=== PATIENT | female | born 1990 | race Caucasian/White ===

== ENCOUNTER 2017-12-01 20:29 | Emergency (ER) | payer BC, OTHER ==
[2017-12-01] MEDS ORDERED: Lactated Ringers 1,000 ML IV ONE (21:18)
[2017-12-01] MEDS ORDERED: HYDROmorphone 2 MG/ML SDV IVPUSH ONE ×2 (21:19→23:46)
[2017-12-01] MEDS ORDERED: Ondansetron 4 MG/2 ML SDV IVPUSH ONE ×2 (21:19→23:46)
[2017-12-01] MEDS ORDERED: Sodium Chloride 0.9% 1,000 ML IV STA (22:52)
[2017-12-01] MEDS ORDERED: Iopamidol 755 Mg/ML 100 ML Bottle IV ONE (23:17)
[2017-12-02] MEDS ORDERED: Sodium Chloride 0.9% 1,000 ML IV SCH
[2017-12-02] MEDS ORDERED: Tamsulosin 0.4 MG Cap.ER PO ONE (00:08)
[2017-12-02] MEDS ORDERED: HYDROmorphone 2 MG/ML SDV IVPUSH ONE (01:33)
[2017-12-02] MEDS ORDERED: Ondansetron 4 MG/2 ML SDV IVPUSH ONE (03:20)
[2017-12-02] MEDS ORDERED: Acetaminophen/oxyCODONE 325-5 MG Tab PO ONE (03:21)
[2017-12-02] MEDS ORDERED: Ketorolac 30 MG/ML SDV IVPUSH ONE (04:49)
[2017-12-02 05:18] VITALS: BP 134/81
--- NOTE | 2017-12-04 11:27 | ER ---
DATE SEEN: 12/01/2017 TIME SEEN: The patient was seen at 2045 hours on 12/01/2017. SUBJECTIVE: Makayla is a 26-year-old, , 2, para 2 woman, who is known to have diarrhea on 11/30/2017, onset at 2200 hours. Then, she slept all night and experienced anorexia the entire day today, 12/01, and then slept till 1600 hours. She went golfing for an hour and then she experienced vomiting. Her last menstrual period was on November 12. Now, she has right flank discomfort and feels "terrible." She has a sharp pain, 9/10 on intensity. Mother had ovarian cyst. The patient is not aware of having any ovarian cyst. The patient is not on control pills. She is sexually active. Had laparoscopic cholecystectomy in 2010. Otherwise, she has been relatively healthy. The patient denies fever. Regarding her eating habits, she had no breakfast today. Yesterday, on 11/30/2017, she had a hot dog and for supper then had a hamburger. Today, she has not eaten anything. She had poor sleep throughout the evening of 11/30/2017 and progress clerk of 12/01/2017, finally went to sleep and slept till 1600 hours today. She had 5 episodes of diarrhea in the progress clerk of 12/01/2017. Presently, she has mild suprapubic discomfort. ALLERGIES: None. MEDICATIONS: None. The patient is attended by her . REVIEW OF SYSTEMS: Otherwise, negative. See HPI. PHYSICAL EXAMINATION: VITAL SIGNS: Blood pressure 131/75, heart rate 62, respirations 20, oxygen saturation 100%, and temperature 36.7 degrees centigrade. Repeat vital signs at 0257 hours, 36.6 degrees centigrade, 64 heart rate, blood pressure 126/80, respirations 17, and oxygen saturation 97%. GENERAL: The patient is in marked pain. She is lying on her side. She has right lower abdominal discomfort, but mostly suprapubic discomfort. Feels nauseated. She is not vomiting now. HEENT: PERRLA intact. Pharynx without abnormality. No thyromegaly. No cervical adenopathy. No tracheal tug. LUNGS: Clear without rales, rhonchi, or wheezes. HEART: S1, S2. No irregular rate or rhythm. ABDOMEN: Soft. No guarding, no rebound. Idbzijuz-kc-nvco suprapubic discomfort. Jtsh-ez-lpmualvl CVA percussion discomfort in the right and left costophrenic angle. EXTREMITIES: Lower extremities without edema. NEURO: Deep tendon reflexes normal in the upper and lower extremities. Cranial nerves II through XII intact, oriented x3, and gait appropriate. No pronator drift, and muscle strength in the upper and lower extremities are normal. WORKING DIAGNOSIS: Rule out renal stone, rule out appendicitis, rule out diverticulitis, rule out ovarian cyst. LABORATORY FINDINGS: White count 19,600, PMNs 85, lymphs 12, monos is negative, eosinophils 3; platelet count 242; hemoglobin 13.6. Complete metabolic panel is normal except for glucose 126 and total protein 8.2, creatinine is 1.0, BUN 13, BUN-creatinine ratio is 13, and GFR greater than 60, sodium 139, potassium 4.3, chloride 104, bicarb 24. Urine: Large occult blood, 15 ketones, urobilinogen 1, leukocyte esterase negative, moderate squamous epithelial cells, few bacteria, moderate mucus. Urine is negative. 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 Obstructing 4 x 4 x 3 mm stone in the distal right ureter, approximately 5 cm above the ureterovesical junction. Moderate dilation of the proximal right ureter, and moderate hydronephrosis in the right renal moiety. Right perinephric and periureteral fat stranding. No bladder mass or definitive wall thickening. Small amount of free fluid in the lower pelvis. Status post cholecystectomy. No pathologically enlarged nodes, reproductive organs. ASSESSMENT: 1. Kidney stones. Right ureter dilation with right hydronephrosis and right ureter stone, 4 x 4 x 3 mm, 6 cm above the ureteropelvic junction. 2. Cholecystectomy. 3. Mild obesity. 4. Not . Negative test. 5. Lactic acid 0.4. 6. Mild hyperglycemia, could reflect to pre-stage diabetes. 7. Trace eosinophilia 3% and also neutrophilic leukocytosis, 19,600 white count. The patient is status post fall in the ER. She did not have a fever. Initial plans were to admit the patient, but there were no beds in the hospital. Consequently, the patient stayed till 1700 hours in the ED and received 2 L of normal saline, Flomax 0.4 mg, total 4 mg of Dilaudid, 30 mg of Toradol, and Zofran 8 mg IV. No antibiotics were given. Per the previous recommendation of [facility] urologists, patients were to stay if they have one kidney, kidney stones, vomiting, fever, and no pain relief. The patient seems to have passed several fragments of stone with 3 small particles of stones. It is possible the may have come from the left ureter; however, and may not have moved her right ureteral stone. However, at this point, no further documentation of a larger stone as 4 x 4 x 3 mm was documented. She will need to have a followup on 12/04/2017. If she has any fever, she will need to come back to be admitted to the hospital. I did not have a conversation with the urologist in the middle of the night as the patient did not appear to have critical problems that would require further consultation. However, it would be the most advantageous for the patient to have a consultation performed by her clinician on 12/04/2017. /[id number] EVELYN/HAMLET MURILLO
== END 2017-12-02 05:57 | disposition home or self-care (01) ==
LOC: FB.ED 20:29
DX: N13.2 Hydronephrosis with renal and ureteral calculous obstruction (principal); E66.9 Obesity, unspecified; R73.9 Hyperglycemia, unspecified; Z90.49 Acquired absence of other specified parts of digestive tract
CPT/HCPCS: 36415; 74177; 80053; 81001; 81025; 83605; 85025; 96361; 96374; 96375; 96376; 99284; A9270; J1170; J1885; J2405; J7030; J7120; Q9967